=== PATIENT | female | born 1965 | race Caucasian/White ===

== ENCOUNTER 2019-08-21 19:07 | Emergency (ER) | payer MEDICAID, SELFPAY ==
[2019-08-21 19:10] VITALS: BP 124/71; PULSE 92; RESP 20; TEMP 36.7; O2SAT 96; BMI 52.4
--- NOTE | 2019-08-21 19:16 | XRR_ITS ---
PROCEDURE INFORMATION: Exam: XR Chest, 1 View Exam date and time: 08/21/2019 7:32 PM Age: 54 years old Clinical indication: Angina; Additional info: Cp TECHNIQUE: Imaging protocol: XR of the chest Views: 1 view. COMPARISON: No relevant prior studies available. FINDINGS: Lungs: Unremarkable. No consolidation. Pleural space: Unremarkable. No pleural effusion. No pneumothorax. Heart/Mediastinum: Unremarkable. No cardiomegaly. Bones/joints: Unremarkable. XR/XR chest 1V portable [id number] IMPRESSION: No acute findings.
--- NOTE | 2019-08-21 19:16 | ECG_ITS ---
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 Measurements Intervals [place] Rate: 80 P: 53 MD: 147 QRS: 60 QRSD: 87 T: 31 QT: 380 QTc: 441 Interpretive Statements SINUS RHYTHM LOW QRS VOLTAGE IN PRECORDIAL LEADS [QRS DEFLECTION < 1.0 mV IN CHEST LEADS] NONSPECIFIC T-WAVE ABNORMALITY No previous ECG available for comparison Electronically Signed On 08-21-2019 21:51:51 CDT by Maggie Gomez M.D. [id number]
--- NOTE | 2019-08-21 19:17 | ED_ITS ---
HPI - Chest Pain General: Chief Complaint: Chest Pain Stated Complaint: CP Time Seen by Provider: 08/21/19 19:16 Source: patient Mode of arrival: ambulatory Limitations: no limitations History of Present Illness: HPI narrative: Patient comes in today for complaints of central chest pain radiating up into her left shoulder. Patient has a history of hypertension, gastroesophageal reflux disease, COPD, and neuropathy. Patient appears mildly unwell. Patient appears in no significant pain. MD complaint: chest heaviness Onset (ago): hour(s) (started at 1700) Prior episodes: No Onset: during rest Pain location: left chest Pain radiation: left arm Severity: moderate Quality: heaviness Review of Systems General: Reports: 10 or more systems reviewed and unremarkable except in HPI and below Card: Reports: chest pain Physical Exam Const: COMMON NORMALS: no acute distress and patient oriented x3 GENERAL APPEARANCE: cooperative HENMT: COMMON NORMALS: normocephalic and Normal external nose present HEAD & SCALP: normal to inspection and normocephalic NOSE: Normal external nose present MOUTH: Normal oral and palatal mucosa present THROAT: posterior oropharynx normal Eye: GENERAL EYE: appearance normal, both eyes and all related structures Neck/C-Spine: COMMON NORMALS: full ROM Chest: OTHER: Left anterior chest wall tenderness with palpation. Resp: COMMON NORMALS: normal respiratory effort EFFORT & INSPECTION: Yes able to speak in complete sentences Cardio: COMMON NORMALS: regular rate and regular rhythm RATE: regular rate RHYTHM: regular rhythm GI: COMMON NORMALS: non-tender Back/Pelvis: COMMON NORMALS: thoracic and lumbar spine normal to inspection Extremity: COMMON NORMALS: normal to inspection Neuro: COMMON NORMALS: patient oriented x3 and moves all extremities Psych: COMMON NORMALS: mental status grossly normal and cooperative Skin: COMMON NORMALS: no rashes or lesions noted GENERAL SKIN EXAM: no rashes or lesions noted Course Vital Signs: Vital signs: Vital Signs Temperature 98.1 F 08/21/19 19:10 Pulse Rate 92 08/21/19 19:10 Respiratory Rate 20 H 08/21/19 19:10 Blood Pressure 124/71 08/21/19 19:10 Pulse Oximetry 96 08/21/19 19:10 MDM - Chest Pain MDM Narrative: Medical decision making narrative: Patient comes in today for complaints of left side chest discomfort. On exam patient has reproducible pain with palpation of left chest wall. Patient also has reproducible pain with midepigastric palpation. Respirations are even lungs are clear to auscultation. Abdomen soft nontender. Vital signs are normal. Differential diagnosis includes but not limited to ACS, GERD, cholecystitis, pancreatitis, costochondritis. Troponin at the first and second hour showed no change. Ultrasound of the gallbladder was negative. Liver enzymes were elevated. D- dimer was negative. Chest x-ray was normal. Patient was treated with 15 mg of Toradol IV and 40 mg of pantoprazole IV. Patient relief of discomfort. Patient did report that when her gallbladder ultrasound was being done she did have some increase in pain. Suspect patient may have some gastroesophageal reflux and will put patient on pantoprazole 40 mg daily for the next 2 weeks. Patient at this time is being treated with omeprazole. Recommend follow-up with primary care for possible stress test. Patient reports understanding of care plan and need for follow-up. Lab Data: Labs: Lab Results 08/21/19 08/21/19 08/21/19 Range/Units 19:37 19:37 19:37 WBC 11.2 H (4.0-10.0) 10^3/ uL RBC 5.10 (4.1-5.3) 10^6/u L Hgb 14.5 (11.5-15.3) g/dL Hct 42.8 (37.0-47.0) % MCV 83.9 (81-99) fL MCH 28.4 (28.0-34.0) pg MCHC 33.9 (30.0-36.0) g/dL RDW 13.0 (12.1-15.1) % Plt Count 325 (130-400) 10^3/c mm MPV 9.3 (7.4-10.4) fL Neut % (Auto) 60.7 % Lymph % (Auto) 26.0 % [place] % (Auto) 10.7 % Eos % (Auto) 1.5 % Baso % (Auto) 0.7 % Neut # (Auto) 6.8 (1.8-7.7) 10^3/u L Lymph # (Auto) 2.9 (0.8-4.8) 10^3/u L [place] # (Auto) 1.2 H (0.2-0.9) 10^3/u L Eos # (Auto) 0.2 (0.0-0.8) 10^3/u L Baso # (Auto) 0.1 (0.0-0.1) 10^3/u L Nucleated RBC % (a uto) 0 % Nucleated RBCs # 0.0 /100WBC D-Dimer (0-0.59) ug/mIFE U Sodium 134 L (136-145) mmol/L Potassium 3.8 (3.5-5.1) mmol/L Chloride 93 L (98-107) mmol/L Carbon Dioxide 24 (22-29) mmol/L Anion Gap 20.8 H (5-19) BUN 19 (6-20) mg/dL Creatinine 0.8 (0.5-0.9) mg/dL GFR Calculation 74.7 L (90-130) mL/min Glucose 127 H (65-115) mg/dL Calculated Osmolal ity 276 L (285-295) mOsm/k g Calcium 10.0 (8.5-10.5) mg/dL Magnesium 2.0 (1.7-2.3) mg/dL Total Bilirubin 0.3 (0.15-1.2) mg/dL AST 37 H (0-32) U/L ALT 47 H (0-33) U/L Alkaline Phosphata se 109 H (35-105) IU/L Troponin T Baselin e 14 H (0-10) ng/L Troponin T 120 Min [place] (0-10) ng/L Total Protein 7.9 (6.6-8.7) g/dL Albumin 4.7 (3.5-5.2) g/dL Globulin 3.2 (1.3-4.6) g/dL TSH 6.87 H (0.27-4.20) uIU/ mL 08/21/19 08/21/19 Range/Units 19:37 21:07 WBC (4.0-10.0) 10^3/ uL RBC (4.1-5.3) 10^6/u L Hgb (11.5-15.3) g/dL Hct (37.0-47.0) % MCV (81-99) fL MCH (28.0-34.0) pg MCHC (30.0-36.0) g/dL RDW (12.1-15.1) % Plt Count (130-400) 10^3/c mm MPV (7.4-10.4) fL Neut % (Auto) % Lymph % (Auto) % [place] % (Auto) % Eos % (Auto) % Baso % (Auto) % Neut # (Auto) (1.8-7.7) 10^3/u L Lymph # (Auto) (0.8-4.8) 10^3/u L [place] # (Auto) (0.2-0.9) 10^3/u L Eos # (Auto) (0.0-0.8) 10^3/u L Baso # (Auto) (0.0-0.1) 10^3/u L Nucleated RBC % (a uto) % Nucleated RBCs # /100WBC D-Dimer <= 0.27 (0-0.59) ug/mIFE U Sodium (136-145) mmol/L Potassium (3.5-5.1) mmol/L Chloride (98-107) mmol/L Carbon Dioxide (22-29) mmol/L Anion Gap (5-19) BUN (6-20) mg/dL Creatinine (0.5-0.9) mg/dL GFR Calculation (90-130) mL/min Glucose (65-115) mg/dL Calculated Osmolal ity (285-295) mOsm/k g Calcium (8.5-10.5) mg/dL Magnesium (1.7-2.3) mg/dL Total Bilirubin (0.15-1.2) mg/dL AST (0-32) U/L ALT (0-33) U/L Alkaline Phosphata se (35-105) IU/L Troponin T Baselin e (0-10) ng/L Troponin T 120 Min [place] 10.16 H (0-10) ng/L Total Protein (6.6-8.7) g/dL Albumin (3.5-5.2) g/dL Globulin (1.3-4.6) g/dL TSH (0.27-4.20) uIU/ mL Discharge Plan Discharge Patient Disposition: Home, Self-Care Clinical Impression: Atypical chest pain, Reflux gastritis Condition: Stable Prescriptions: New pantoprazole 40 mg tablet,delayed release (DR/EC) 40 mg PO DAILY 28 Days Qty: 28 RF: 0 Discharge Orders: Discharge Order (Routine); Ordered 08/21/19 Ordered By: Erich Malodnado Referrals: Thaddeus Hernandez [Primary Care Provider] - Discharge Diet: Usual diet Discharge Activity: Increase activity as tolerated Activity Restrictions/Additional Instructions: Take pantoprazole 30 minutes prior to the first meal of the day. Take medication routinely for the next 2 weeks. Drink plenty of fluids. Follow-up with primary care for further evaluation and treatment. Return to the ER for worsening symptoms or new concerns. Coding Level of Care Code ED Pantograph Machine Set Up Operator for Quan Fwd Exam Comprehensive
[2019-08-21 19:46] LABS: Basophils # 0.1 10^3/uL (0.0-0.1); Basophils % 0.7 %; Eosinophils # 0.2 10^3/uL (0.0-0.8); Eosinophils % 1.5 %; Hematocrit 42.8 % (37.0-47.0); Hemoglobin 14.5 g/dL (11.5-15.3); Lymphocytes # 2.9 10^3/uL (0.8-4.8); Mean Corpuscular HGB Conc 33.9 g/dL (30.0-36.0); Mean Corpuscular Hemoglobin 28.4 pg (28.0-34.0); Mean Corpuscular Volume 83.9 fL (81-99); Mean Platelet Volume 9.3 fL (7.4-10.4); Monocytes # 1.2 10^3/uL (0.2-0.9); Monocytes % 10.7 %; Neutrophils # 6.8 10^3/uL (1.8-7.7); Neutrophils % 60.7 %; Nucleated Red Blood Cells % 0 %; Platelet Count 325 10^3/cmm (130-400); White Blood Count 11.2 10^3/uL (4.0-10.0)
[2019-08-21 19:59] LABS: D Dimer <= 0.27 ug/mIFEU (0-0.59)
[2019-08-21 20:17] LABS: Troponin(5th) Baseline 14 ng/L (0-10)
[2019-08-21] MEDS: pantoprazole 40 mg SDV IVP (20:24)
[2019-08-21 20:26] LABS: Alanine Aminotransferase 47 U/L (0-33); Albumin Level 4.7 g/dL (3.5-5.2); Alkaline Phosphatase 109 IU/L (35-105); Anion Gap 20.8 (5-19); Aspartate Amino Transferase 37 U/L (0-32); Blood Urea Nitrogen 19 mg/dL (6-20); Carbon Dioxide 24 mmol/L (22-29); Chloride 93 mmol/L (98-107); Globulin 3.2 g/dL (1.3-4.6); Glomerular Filtration Rate 74.7 mL/min (90-130); Glucose 127 mg/dL (65-115); Osmolality Calculated 276 mOsm/kg (285-295); Potassium 3.8 mmol/L (3.5-5.1); Sodium 134 mmol/L (136-145); Thyroid Stimulating Hormone 6.87 uIU/mL (0.27-4.20); Total Bilirubin 0.3 mg/dL (0.15-1.2); Total Protein 7.9 g/dL (6.6-8.7)
[2019-08-21] MEDS: ketorolac 30 mg/mL INJ 15 MG IVP (20:27)
--- NOTE | 2019-08-21 20:35 | USR_ITS ---
PROCEDURE INFORMATION: Exam: US Abdomen, Limited; Right Upper Quadrant Exam date and time: 08/21/2019 8:56 PM Age: 54 years old Clinical indication: Abdominal pain; Acute; Patient HX: Npo since 3 pm today; Additional info: Elevated liver enzymes TECHNIQUE: Imaging protocol: US abdomen. Real time ultrasound with image documentation. Limited exam focused on the right upper quadrant. COMPARISON: No relevant prior studies available. FINDINGS: Liver: Advanced diffuse fatty infiltration of the liver. Hepatomegaly. No intra or extrahepatic biliary ectasia common bile duct measuring 5 mm Gallbladder: Gallbladder free of cholelithiasis. No gallbladder wall thickening or pericholecystic fluid. Common bile duct: Normal. No stones. No dilation. Pancreas: Limited assessment of the pancreas grossly unremarkable. Right kidney: Right kidney unremarkable. Right kidney measures 9.4 cm x 5.7 cm x 6.6 cm. Aorta: The abdominal aorta, where visualized, appears nonaneurysmal. Portal venous: Antegrade portal venous flow. Other findings: Diagnostic quality technically difficult due to patient's obesity. US/US gall bladder [id number] IMPRESSION: Advanced diffuse fatty infiltration of the liver with hepatomegaly.
[2019-08-21 21:42] LABS: Troponin 5 2HR 10.16 ng/L (0-10)
[2019-08-21 22:01] VITALS: BP 150/79; PULSE 80; RESP 16; O2SAT 96
[2019-08-21 22:18] LABS: Troponin 5 2HR Delta -3.84 ABS# (0-10)
== END 2019-08-21 22:10 | disposition home or self-care (01) ==
PROVIDERS: Emergency Provider Nurse Practitioner Family; PCP Family Medicine
DX: R07.89 Other chest pain (principal); K29.60 Other gastritis without bleeding
CPT/HCPCS: 12345; 71045; 76705; 80053; 83735; 84443; 84484; 85025; 85378; 93005; 96374; 96375; 99282; 99283; 99284; C9113; J1885

== ENCOUNTER → 2020-02-02 15:36 | Outpatient (BNVA) | payer MEDICAID, SELFPAY | PROVIDERS: PCP Family Medicine; Visit Provider Orthopaedic Surgery | DX: M25.512 Pain in left shoulder (principal) | CPT/HCPCS: 73030 ==

== ENCOUNTER 2020-02-05 10:27 | Outpatient (CLI) | payer MEDICAID, SELFPAY ==
--- NOTE | 2020-02-05 10:36 | USCV_ITS ---
Radha Mendoza Age: 54 Gender: F : 1965 Exam Date: 02/05/2020 10:55 Ordering Phys: Rupinder Carvajal STATE INSPECTOR STATE INSPECTOR Technologist: Mercedez Whatley Exam Location[place] [facility] [place] Indication: pain aggravated by walking/lt leg edema/ difficulty walking Risk Factors: Previous Vascular Surgery: RIGHT LEFT BP: 131.0 / 67.00 BP: 137.0/ 67.00 0 0 Waveform Velocity (cm/s) Velocity (cm/s) Waveform Monophasic 80.0 Iliac Prox 131.3 Triphasic Monophasic 91.3 Iliac Mid 107.3 Triphasic Monophasic 87.9 Iliac Distal 136.3 Triphasic Monophasic 92.3 SPECIAL LIBRARIAN 152.8 Triphasic Monophasic 99.5 SFA Prox 154.2 Triphasic Monophasic 100.6 SFA Mid 101.5 Triphasic Monophasic 62.2 SFA Dist 97.0 Triphasic Monophasic 59.6 POP 73.9 Triphasic Monophasic 50.2 SALES ORDER ADMINISTRATOR 77.7 Triphasic Monophasic 44.4 DPA 60.9 Triphasic 0.6 DOTTIE 0.9 FINDINGS Monophasic and continues Doppler waveform on the right side with a resting DOTTIE of 0.6. Normal Doppler waveform with near normal DOTTIE on the left side CONCLUSIONS #1. Abnormal resting DOTTIE and Doppler waveform on the right side suggestive of obstructive arterial disease possibly moderate to severe, at the aortoiliac level. #2. No significant arterial obstruction on the left side. No similar previous studies available for comparison Dr Enmanuel Neves MD [facility] (Electronically Signed) Final Date: 05 February 2020 20:06 S
== END 2020-02-05 10:28 | disposition home or self-care (01) ==
PROVIDERS: PCP Family Medicine; Visit Provider Registered Nurse
DX: M79.604 Pain in right leg (principal); M79.605 Pain in left leg; R60.0 Localized edema
CPT/HCPCS: 93925

== ENCOUNTER 2020-03-14 12:36 | Outpatient (CLI) | payer MEDICAID, SELFPAY ==
--- NOTE | 2020-03-14 12:40 | US_ITS ---
WS: [id number] Complete ABDOMINAL ULTRASOUND HISTORY: RUQ ABDOMINAL PAIN/ABD BLOATING/ELEVATED LIVER ENZYMES COMPARISON: None available. Liver: 21.8 cm in length. Marked enlargement of the liver with severe attenuation. No mass identified but the entire liver is not imaged well. Gallbladder: Normally distended with no gallstones, wall thickening or pericholecystic fluid. Gallbladder wall thickness: 0.1 cm. Pancreas: Obscured by bowel gas and body habitus. CBD: 0.4 cm. Right kidney: 12.4 cm x 4.9 cm x 4.4 cm. No mass, cortical thickening or hydronephrosis. Left kidney: 11.1 cm x 5.8 cm x 5.9 cm. No mass, cortical thickening or hydronephrosis. Spleen: Normal size and echogenicity. Abdominal aorta and IVC are within normal limits. No ascites. US/US abdomen complete* [id number] IMPRESSION: 1. Severe hepatomegaly and hepatic steatosis. 2. Negative gallbladder. 3. No renal obstruction. 4. Pancreas not visualized.
== END 2020-03-14 12:37 | disposition home or self-care (01) ==
PROVIDERS: PCP Family Medicine; Visit Provider Registered Nurse
DX: R10.11 Right upper quadrant pain (principal); R14.0 Abdominal distension (gaseous); R74.8 Abnormal levels of other serum enzymes; R16.0 Hepatomegaly, not elsewhere classified
CPT/HCPCS: 76700

== ENCOUNTER 2020-04-20 13:44 | Outpatient (CLI) | payer MEDICAID, SELFPAY ==
--- NOTE | 2020-04-20 14:00 | CT_ITS ---
WS: [id number] CT ANGIOGRAPHY OF THE ABDOMINAL AORTA WITH RUNOFF TO THE ANKLES HISTORY: I73.9 - Peripheral vascular disease, unspecified TECHNIQUE: Arterial injection is performed during imaging to evaluate the aorta and runoff vessels to the ankles. MIP and volume rendering imaging has also been performed. All images are reviewed. All C T scans at [facility] use at least one of these dose optimization techniques: automated ex posure control; mA and/or kV adjustment per patient size (includes targeted exams where dose is match ed to clinical indication); or iterative reconstruction. Contrast: Omnipaque 350; 180 mL IV. DLP: 3432.04 mGycm COMPARISON: None available. Abdominal aorta: Atherosclerotic plaque. Near circumferential plaque below the renal arteries. There is a moderate stenosis with narrowing of the lumen just above the bifurcation to 7.3 mm. More heavy c alcified plaque at the bifurcation with a high-grade stenosis involving the origin of the RIGHT commo n carotid artery. Calcified plaque at the origin of the SMA and celiac axis and the renal arteries bu t no stenosis. RIGHT lower extremity arterial system: High-grade stenosis at the origin of the RIGHT common iliac ar beltran. Focal plaque throughout the remaining common iliac artery. Small amount of calcified plaque in the RIGHT femoral artery. Limited contrast opacification in the RIGHT lower extremity. Probably due t o the more proximal stenosis. 2 attempts at distending the arteries were performed without success. T here are a few scattered plaques in the superficial femoral artery and the popliteal but no obvious o cclusion. Mid to distal SFA is poorly opacified. Arteries below the knee is poorly visualized. LEFT lower extremity arterial system: Focal calcified plaque at the origin of the LEFT common iliac a rtery. Calcified plaque throughout the remaining common iliac artery. External iliac is patent. Small amount of plaque at the femoral artery. Mid to distal SFA is poorly opacified. Poor opacification of the femoral artery and the popliteal artery. Vessels are small caliber but they are patent. Arterial runoff to the ankle below the knee is difficult to visualize. Lung bases are clear. Hepatic steatosis and hepatomegaly. Normal gallbladder and spleen. Normal pancr eas and adrenal glands. Kidneys are enhancing normally. No ascites or adenopathy. Mild distal colonic diverticulosis without diverticulitis. Uterus is normal size. CT/CT angio abd aorta runof [id number] IMPRESSION: 1. Moderate to high-grade stenosis involving the distal abdominal aorta. Maxim um transverse diameter of the lumen is 7.3 mm. 2. High-grade stenosis origin of the RIGHT common iliac artery. Measured at 70 % but visually appears greater than 70%. 3. Moderate stenosis origin of the LEFT common iliac artery 63%. 4. Moderate hepatic steatosis and hepatomegaly. 5. Suboptimal opacification of the arteries below the knees.
[2020-04-20] MEDS: iohexol 350 mg/mL 100 mL Btl IV (15:16)
== END 2020-04-20 13:45 | disposition home or self-care (01) ==
LOC: RADWPI 13:47
PROVIDERS: PCP Family Medicine; Visit Provider Thoracic Surgery (Cardiothoracic Vascular Surgery)
DX: I73.9 Peripheral vascular disease, unspecified (principal); K76.0 Fatty (change of) liver, not elsewhere classified; I70.8 Atherosclerosis of other arteries; R16.0 Hepatomegaly, not elsewhere classified
CPT/HCPCS: 75635; Q9967

== ENCOUNTER 2022-04-17 22:11 | Emergency (ER) | payer MEDICARE, MEDICAID, SELFPAY ==
[2022-04-17 22:18] VITALS: BP 121/67; PULSE 107; RESP 22; TEMP 36.8; O2SAT 97; BMI 47.5
[2022-04-17 22:58] VITALS: O2SAT 92
--- NOTE | 2022-04-17 23:11 | ED_ITS ---
HPI - COVID General: Chief Complaint: COVID symptoms Stated Complaint: SOB, cough, fever Time Seen by Provider: 04/17/22 22:40 History of Present Illness: Patient is a 57-year-old female who comes to the ED with upper respiratory viral symptoms. Patient has a history of COPD. Symptoms have been going on now for 2 weeks. She endorses having chills, body aches, nasal drainage and congestion, shortness of breath and dry cough. Patient has breathing treatments at home and does not need any refills. She says she used a breathing treatment about an hour before she came to the ED. Denies any fevers, chest pain, nausea/vomiting, abdominal pain, bladder or bowel symptoms. COVID 19 common symptoms: positive chills, non-productive cough, dyspnea, fatigue, body aches and nasal congestion; negative fever(s), productive cough, headache(s), throat pain, nausea, vomiting or diarrhea COVID 19 other sytmptoms: negative chest pain COVID Results: SARS-CoV-2 Antigen (Rapid) negative (Negative) 04/17/22 22:51 Review of Systems Const: Reports: chills, body aches and fatigue; Denies: fever(s) Eyes: Denies: change in vision or eye discomfort ENMT: Reports: nasal discharge and nasal congestion; Denies: throat pain or odynophagia Card: Denies: chest pain, palpitations, edema, swelling of feet/ankles, dyspnea on exertion or orthopnea Resp: Reports: dyspnea and non-productive cough; Denies: productive cough GI: Denies: abdominal pain, nausea, vomiting, diarrhea, constipation or hematochezia : Denies: flank pain, dysuria or hematuria Musc: Denies: neck pain, back pain or extremity swelling Skin/Breast: Denies: rash or new lesions Neuro: Denies: headache(s), numbness in extremities or weakness in extremities PFS ED PFSH: Medical History COPD (chronic obstructive pulmonary disease) Family History Father Cancer Hypertension Mother Diabetes Hypertension Stroke Denies family history of CAD (coronary artery disease) Social History Smoking and tobacco status: current every day smoker cigarettes Packs smoked per day: 1.5 Years cigarettes smoked: 40 Alcohol intake: former Year of sobriety/quit date alcohol: 2010 Physical Exam Const: COMMON NORMALS: no acute distress, patient oriented x3 and alert GENERAL APPEARANCE: cooperative and comfortable HENMT: COMMON NORMALS: normocephalic HEAD & SCALP: normocephalic MOUTH: Normal oral and palatal mucosa present THROAT: posterior oropharynx normal and uvula midline Neck/C-Spine: COMMON NORMALS: supple GENERAL: Yes normal visual inspection Resp: COMMON NORMALS: normal respiratory effort, No retractions, No use of accessory muscles and clear to auscultation bilaterally EFFORT & INSPECTION: Yes able to speak in complete sentences and Yes Actively coughing non-productive and dry AUSCULTATION: clear to auscultation bilaterally Cardio: COMMON NORMALS: regular rate, regular rhythm, S1 normal heart sound present, S2 normal heart sound present, No gallops present (Cardio), No clicks present (Cardio), No murmurs present (Cardio) and Peripheral pulses 2+ throughout RATE: regular rate RHYTHM: regular rhythm HEART SOUNDS: S1 normal heart sound present and S2 normal heart sound present PERIPHERAL PULSES: Peripheral pulses 2+ throughout GI: COMMON NORMALS: Normal to inspection, nondistended, normoactive bowel sounds present, Soft to palpation, non-tender and no masses PALPATION: Yes Soft to palpation : COMMON NORMALS: Yes no CVA tenderness BLADDER/KIDNEY EXAM: Yes no CVA tenderness Back/Pelvis: COMMON NORMALS: no CVA tenderness Extremity: COMMON NORMALS: normal to inspection Neuro: COMMON NORMALS: patient oriented x3 SENSORIUM/ORIENTATION: Yes alert GAIT: Yes Normal gait present Skin: GENERAL SKIN EXAM: dry skin Course Vital Signs: Vital signs: Vital Signs Temperature 98.2 F 04/17/22 22:18 Pulse Rate 99 04/18/22 01:28 Respiratory Rate 20 H 04/18/22 01:28 Blood Pressure 121/67 04/17/22 22:18 Pulse Oximetry 95 04/18/22 01:28 Oxygen Delivery Me thod 04/17/22 22:58 MDM - COVID Medical Decision Making Patient is a 57-year-old female who comes to the ED with upper respiratory viral symptoms. Patient has a history of COPD. Symptoms have been going on now for 2 weeks. She endorses having chills, body aches, nasal drainage and congestion, shortness of breath and dry cough. Vitals are stable patient is afebrile. She appears nontoxic and in no acute distress or pain is sitting comfortably on exam chair when entered the room. She had an active dry nonproductive cough. Lungs are clear to auscultation bilaterally and the rest of exam is benign. Influenza and COVID were negative. Chest x-ray showed no acute findings. Patient was given shot of Solu-Medrol here in the ED. Patient was diagnosed with bronchitis and was discharged home with a prescription for an antibiotic and steroid. Told to follow-up with her PCP within the next week for reevaluation. Return ED precautions given. Patient understood and agreed with plan. Lab Data I reviewed the patient's lab results. Laboratory Results Influenza Type A Ag negative (Negative) 04/17/22 22:51 Influenza Type B Ag negative (Negative) 04/17/22 22:51 SARS-CoV-2 Ag (Rapid) negative (Negative) 04/17/22 22:51 SARS-CoV-2 Antigen (Rapid) negative (Negative) 04/17/22 22:51 Discharge Plan Discharge Patient Disposition: Home Clinical Impression: Bronchitis Condition: Stable Prescriptions: New doxycycline hyclate 100 mg capsule 100 mg PO BID 10 Days Qty: 20 0RF prednisone 20 mg tablet 20 mg PO BID 5 Days Qty: 10 0RF No Action paroxetine HCl 30 mg tablet 30 mg PO DAILY furosemide 40 mg tablet 40 mg PO DAILY metoprolol tartrate 100 mg tablet 100 mg PO BID albuterol sulfate 90 mcg/actuation HFA aerosol inhaler 2 puff inhalation Q6H PRN lorazepam [Ativan] 1 mg tablet 1 mg PO DAILY PRN (Reason: anxiety) Qty: 1 0RF Rx Instructions: Take tablet 30 minutes prior to MRI fluconazole [Diflucan] 150 mg tablet 150 mg PO Q3D Qty: 2 0RF Rx Instructions: may repeat second dose 72 hrs after first dose if symptoms persist nystatin 100,000 unit/gram cream 1 applic topical BID Qty: 15 1RF Discharge Orders: Discharge ED (Routine); Ordered 04/18/22 Ordered By: Dre Mckeon Referrals: Azalia Tejeda DO [Primary Care Provider] - Discharge Diet: Regular Discharge Activity: Increase activity as tolerated Patient Instructions: Bronchitis (Acute) - Adult Activity Restrictions/Additional Instructions: Follow-up with medical provider as directed in the next 3 to 5 days for reevaluation. Take medications as prescribed. Use your at home inhalers as prescribed to help with any shortness of breath or wheezing. Return to the ER or your medical provider if condition worsens. Please read and understand discharge instructions. Thank you for choosing [facility] for your healthcare needs today. Please realize this is an emergency room and that we are providing you with a medical screening exam and this may not be complete and all inclusive of all the testing and or work up that you may need to determine your ailment or severity of your illness. It is very important that you follow up as instructed or that you return to the Emergency Department should you have concerns or if your condition changes or worsens in any way. Coding Level of Care Code ED Civil Division Deputy Sheriff for Quan Barba
[2022-04-17 23:14] LABS: Influenza A by IFA negative (Negative); Influenza B by IFA negative (Negative); SARS Covid-2 Antigen negative (Negative)
[2022-04-18 01:28] VITALS: PULSE 99; RESP 20; O2SAT 95
== END 2022-04-18 01:28 | disposition home or self-care (01) ==
PROVIDERS: Emergency Medicine; Emergency Provider Physician Assistant; PCP Family Medicine
DX: J40 Bronchitis, not specified as acute or chronic (principal); Z20.822 Contact with and (suspected) exposure to COVID-19; J44.9 Chronic obstructive pulmonary disease, unspecified; F17.210 Nicotine dependence, cigarettes, uncomplicated
CPT/HCPCS: 87426; 87804; 96372; 99284; J2930

== ENCOUNTER 2022-04-17 22:14 | Emergency (ER) | payer MEDICARE, MEDICAID, SELFPAY ==
--- NOTE | 2022-04-17 22:20 | XRR_ITS ---
PROCEDURE INFORMATION: Exam: XR Chest Exam date and time: 04/17/2022 11:18 PM Age: 57 years old Clinical indication: Cough and fever and shortness of breath; Smoker's cough; Additional info: Covid symptoms TECHNIQUE: Imaging protocol: Radiologic exam of the chest. Views: 1 view. COMPARISON: CR XR chest 1V portable [id number] 08/21/2019 7:23 PM FINDINGS: Lungs: Unremarkable. No consolidation. Pleural spaces: Unremarkable. No pleural effusion. No pneumothorax. Heart/Mediastinum: Unremarkable. No cardiomegaly. Bones/joints: Unremarkable. XR/XR chest 1V portable [id number] IMPRESSION: No acute findings.
== END 2022-04-17 22:23 | disposition home or self-care (01) ==
LOC: ER 22:23
PROVIDERS: Emergency Provider Family Medicine; PCP Family Medicine
DX: J41.0 Simple chronic bronchitis (principal); R50.9 Fever, unspecified; R06.02 Shortness of breath
CPT/HCPCS: 71045

== ENCOUNTER 2024-04-21 07:46 | Outpatient (RCR) | payer MEDICARE, MEDICAID, SELFPAY | END 2024-04-24 23:59 | disposition home or self-care (01) | LOC: MPT 07:46 | PROVIDERS: Visit Provider Student in an Organized Health Care Education/Training Program | DX: G81.91 Hemiplegia, unspecified affecting right dominant side (principal); R26.81 Unsteadiness on feet | CPT/HCPCS: 97110; 97162 ==

== ENCOUNTER 2024-04-22 06:00 | Outpatient (RCR) | payer MEDICARE, MEDICAID, SELFPAY | END 2024-04-24 23:59 | disposition home or self-care (01) | LOC: MST 06:00 | PROVIDERS: Visit Provider Student in an Organized Health Care Education/Training Program | DX: I69.920 Aphasia following unspecified cerebrovascular disease (principal) | CPT/HCPCS: 92523 ==

== ENCOUNTER 2024-04-25 06:00 | Outpatient (RCR) | payer MEDICARE, MEDICAID, SELFPAY | END 2024-05-25 23:59 | disposition home or self-care (01) | LOC: MPT 06:00 | PROVIDERS: Visit Provider Student in an Organized Health Care Education/Training Program | DX: G81.91 Hemiplegia, unspecified affecting right dominant side (principal); R26.81 Unsteadiness on feet | CPT/HCPCS: 97110; 97112 ==

== ENCOUNTER 2024-04-25 06:00 | Outpatient (RCR) | payer MEDICARE, MEDICAID, SELFPAY | END 2024-05-25 23:59 | disposition home or self-care (01) | LOC: MST 06:00 | PROVIDERS: Visit Provider Student in an Organized Health Care Education/Training Program | DX: F80.1 Expressive language disorder (principal); R13.10 Dysphagia, unspecified | CPT/HCPCS: 92507 ==

== ENCOUNTER 2024-05-26 05:00 | Outpatient (RCR) | payer MEDICARE, MEDICAID, SELFPAY | END 2024-06-24 23:59 | disposition home or self-care (01) | LOC: MST 05:00 | PROVIDERS: Visit Provider Student in an Organized Health Care Education/Training Program | DX: F80.1 Expressive language disorder (principal) | CPT/HCPCS: 92507 ==

== ENCOUNTER 2024-05-26 06:00 | Outpatient (RCR) | payer MEDICARE, MEDICAID, SELFPAY | END 2024-06-24 23:59 | disposition home or self-care (01) | LOC: MPT 06:00 | PROVIDERS: Visit Provider Student in an Organized Health Care Education/Training Program | DX: G81.91 Hemiplegia, unspecified affecting right dominant side (principal); R26.81 Unsteadiness on feet | CPT/HCPCS: 97110; 97530 ==

== ENCOUNTER 2024-06-25 05:00 | Outpatient (RCR) | payer MEDICARE, MEDICAID, SELFPAY | END 2024-07-25 23:59 | disposition home or self-care (01) | LOC: MST 05:00 | PROVIDERS: Visit Provider Student in an Organized Health Care Education/Training Program | DX: R13.19 Other dysphagia (principal) | CPT/HCPCS: 92507 ==

== ENCOUNTER 2024-06-25 06:00 | Outpatient (RCR) | payer MEDICARE, MEDICAID, SELFPAY | END 2024-07-25 23:59 | disposition home or self-care (01) | LOC: MPT 06:00 | PROVIDERS: Visit Provider Student in an Organized Health Care Education/Training Program | DX: G81.91 Hemiplegia, unspecified affecting right dominant side (principal); R26.81 Unsteadiness on feet | CPT/HCPCS: 97110 ==

== ENCOUNTER 2024-07-26 05:00 | Outpatient (RCR) | payer MEDICARE, MEDICAID, SELFPAY | END 2024-08-24 23:59 | disposition home or self-care (01) | LOC: MPT 05:00 | PROVIDERS: Visit Provider Student in an Organized Health Care Education/Training Program | DX: G81.91 Hemiplegia, unspecified affecting right dominant side (principal); R26.81 Unsteadiness on feet | CPT/HCPCS: 97110 ==

== ENCOUNTER 2024-07-26 05:00 | Outpatient (RCR) | payer MEDICARE, MEDICAID, SELFPAY | END 2024-08-24 23:59 | disposition home or self-care (01) | LOC: MST 05:00 | PROVIDERS: Visit Provider Student in an Organized Health Care Education/Training Program | DX: R13.10 Dysphagia, unspecified (principal) | CPT/HCPCS: 92507 ==

== ENCOUNTER 2024-08-25 05:00 | Outpatient (RCR) | payer MEDICARE, MEDICAID, SELFPAY | END 2024-09-24 23:59 | disposition home or self-care (01) | LOC: MPT 05:00 | PROVIDERS: Visit Provider Student in an Organized Health Care Education/Training Program | DX: G81.91 Hemiplegia, unspecified affecting right dominant side (principal); R26.81 Unsteadiness on feet | CPT/HCPCS: 97110; 97112 ==

== ENCOUNTER 2024-08-25 05:00 | Outpatient (RCR) | payer MEDICARE, MEDICAID, SELFPAY | END 2024-09-24 23:59 | disposition home or self-care (01) | LOC: MST 05:00 | PROVIDERS: Visit Provider Student in an Organized Health Care Education/Training Program | DX: R13.10 Dysphagia, unspecified (principal) | CPT/HCPCS: 92507 ==

== ENCOUNTER 2024-09-25 05:00 | Outpatient (RCR) | payer MEDICARE, MEDICAID, SELFPAY | END 2024-10-25 23:59 | disposition home or self-care (01) | LOC: MPT 05:00 | PROVIDERS: Visit Provider Student in an Organized Health Care Education/Training Program | DX: G81.91 Hemiplegia, unspecified affecting right dominant side (principal); R26.81 Unsteadiness on feet | CPT/HCPCS: 97110; 97112 ==

== ENCOUNTER 2024-09-25 05:00 | Outpatient (RCR) | payer MEDICARE, MEDICAID, SELFPAY | END 2024-10-25 23:59 | disposition home or self-care (01) | LOC: MST 05:00 | PROVIDERS: Visit Provider Student in an Organized Health Care Education/Training Program | DX: R13.10 Dysphagia, unspecified (principal) | CPT/HCPCS: 92507 ==

== ENCOUNTER 2024-10-26 05:00 | Outpatient (RCR) | payer MEDICARE, MEDICAID, SELFPAY | END 2024-11-24 23:59 | disposition home or self-care (01) | LOC: MPT 05:00 | PROVIDERS: Visit Provider Student in an Organized Health Care Education/Training Program | DX: G81.91 Hemiplegia, unspecified affecting right dominant side (principal); R26.81 Unsteadiness on feet | CPT/HCPCS: 97110 ==

== ENCOUNTER 2024-10-26 05:00 | Outpatient (RCR) | payer MEDICARE, MEDICAID, SELFPAY | END 2024-11-24 23:59 | disposition home or self-care (01) | LOC: MST 05:00 | PROVIDERS: Visit Provider Student in an Organized Health Care Education/Training Program | DX: R13.10 Dysphagia, unspecified (principal) | CPT/HCPCS: 92507 ==

== ENCOUNTER 2024-12-16 12:54 | Outpatient (RCR) | payer MEDICARE, MEDICAID, SELFPAY | END 2024-12-25 23:59 | disposition home or self-care (01) | LOC: MST 12:54 | PROVIDERS: Visit Provider Student in an Organized Health Care Education/Training Program | DX: R13.10 Dysphagia, unspecified (principal) | CPT/HCPCS: 92507 ==

== ENCOUNTER 2024-12-16 12:54 | Outpatient (RCR) | payer MEDICARE, MEDICAID, SELFPAY | END 2024-12-25 23:59 | disposition home or self-care (01) | LOC: MPT 12:54 | PROVIDERS: Visit Provider Student in an Organized Health Care Education/Training Program | DX: G81.91 Hemiplegia, unspecified affecting right dominant side (principal); R26.81 Unsteadiness on feet | CPT/HCPCS: 97110; 97112 ==

== ENCOUNTER 2025-01-13 12:55 | Outpatient (RCR) | payer MEDICARE, MEDICAID, SELFPAY | END 2025-01-14 08:18 | disposition home or self-care (01) | LOC: MST 12:55 | PROVIDERS: Visit Provider Student in an Organized Health Care Education/Training Program | DX: I69.220 Aphasia following other nontraumatic intracranial hemorrhage (principal) | CPT/HCPCS: 92507 ==